=== PATIENT | male | born 1985 | race Caucasian/White ===

== ENCOUNTER 2018-10-17 22:34 | Emergency (ER) | payer SELFPAY, OTHER ==
[2018-10-18] MEDS ORDERED: LIDOCAINE 1% (MDV) 10 ML INJ INJ (02:54)
[2018-10-18] MEDS: LIDOCAINE 1% (MDV) 20 ML INJ SC (04:59)
== END 2018-10-18 05:13 | disposition home or self-care (01) ==
LOC: FTE 22:34
DX: S01.21XA Laceration without foreign body of nose, initial encounter (principal); W01.0XXA Fall on same level from slipping, tripping and stumbling without subsequent striking against object, initial encounter; Y92.830 Public park as the place of occurrence of the external cause; Z87.891 Personal history of nicotine dependence
CPT/HCPCS: 12011; 99282-25

== ENCOUNTER 2018-10-20 10:56 | Emergency (ER) | payer SELFPAY | END 2018-10-20 12:15 | disposition left against medical advice (07) | LOC: FTE 10:56 | DX: Z48.01 Encounter for change or removal of surgical wound dressing (principal) | CPT/HCPCS: 99281 ==

== ENCOUNTER 2018-10-23 20:07 | Emergency (ER) | payer SELFPAY, OTHER | END 2018-10-23 20:40 | disposition home or self-care (01) | LOC: FTE 20:07 | DX: Z48.02 Encounter for removal of sutures (principal); F17.210 Nicotine dependence, cigarettes, uncomplicated | CPT/HCPCS: 99281 ==